=== PATIENT | male | born 1940 | race African-American/Black ===

== ENCOUNTER 2018-03-01 07:09 | Observation (INO) ==
[~2018-03-01 07:09] MED LIST: LACTATED RINGERS 1,000 ML IV SCH; ceFAZolin 1,000 MG VIAL ONE
[2018-03-01 07:49] LABS: Basophils % 0.6 % (0.0-0.8); Eosinophils # 0.2 10*3/uL (0.0-0.87); Eosinophils % 3.2 % (0.00-10.9); Hematocrit 36.3 VOL% (42.0-52.0); Hemoglobin 11.6 GM/DL (14.0-18.0); Immature Granulocytes % 0.4 %; Immature Granulocytes Absolute 0.02 #; Lymphocytes # 1.8 10*3/uL (1.4-4.0); Lymphocytes % 37.1 % (21.2-54.2); Mean Corpuscular Hemoglobin 27 PG (27-34); Mean Corpuscular Volume 85.8 FL (87-102); Mean Platelet Volume 9.2 FL (9.6-12.0); Monocytes # 0.4 10*3/uL (0.11-0.8); Monocytes % 9.1 % (1.7-12.7); Neutrophils # 2.4 10*3/uL (1.4-7.4); Neutrophils % 49.6 % (38.7-73.9); Platelet Count 191 T/CUMM (130-400); Red Blood Count 4.23 MC/CUMM (3.8-5.5); Red Cell Distribution Width 15.3 % (9.3-17.3); White Blood Count 4.7 T/CUMM (4-12)
[2018-03-01] MEDS ORDERED: ceFAZolin 1,000 MG in SYRINGE 1 EACH IV ONE (08:00)
[2018-03-01 08:22] LABS: Albumin 3.6 G/DL (3.4-5.0); Bilirubin,Total 0.4 MG/DL (0.2-1.0); Calcium 9.1 MG/DL (8.5-10.1); Potassium 3.6 MMOL/L (3.5-5.1); Total Protein 7.8 G/DL (6.4-8.3)
[2018-03-01] MEDS ORDERED: METOPROLOL SUCCINATE XL 25 MG TABLET PO ONE (09:09)
[2018-03-01] MEDS ORDERED: TISSUE ADHESIVE 1 EACH APPLICATOR TOP ONE (09:45)
[2018-03-01] MEDS ORDERED: BUPIVACAINE MPF 0.25% /EPI 30 ML VIAL ONE (09:45)
[2018-03-01] MEDS ORDERED: LIDOCAINE 1%/EPI INJ 20 ML VIAL ONE (09:45)
[2018-03-01] MEDS ORDERED: ONDANSETRON 4 MG/2 ML VIAL IV PRN (11:14)
[2018-03-01] MEDS ORDERED: MORPHINE 4 MG/1 ML VIAL IV PRN (11:14)
[2018-03-01] MEDS ORDERED: PROPOFOL 200 MG/20 ML VIAL IV ONE (11:29)
[2018-03-01] MEDS ORDERED: SEVOFLURANE 1 UNIT/15 MINUTE INH ONE (11:29)
[2018-03-01] MEDS ORDERED: ePHEDrine 50 MG/ML AMP ONE (11:29)
[2018-03-01] MEDS ORDERED: fentaNYL 100 MCG/2 ML VIAL ONE (11:29)
[2018-03-01] MEDS ORDERED: GLYCOPYRROLATE 0.4 MG/2 ML VIAL ONE (11:30)
[2018-03-01] MEDS ORDERED: PHENYLEPHRINE 1 MG/10 ML SYRINGE IV ONE (11:30)
[2018-03-01] MEDS ORDERED: ROCURONIUM 100 MG/10 ML VIAL IV ONE (11:30)
[2018-03-01] MEDS ORDERED: ACETAMINOPHEN 1,000 MG/100 ML VIAL IV ONE (11:30)
[2018-03-01] MEDS ORDERED: NEOSTIGMINE 10 MG/10 ML VIAL ONE (11:30)
[2018-03-01] MEDS ORDERED: FUROSEMIDE 20 MG TABLET PO SCH (16:00)
[2018-03-01 20:22] LABS: Troponin I Only < 0.015 NG/ML (0.00-0.045)
[2018-03-01 20:26] LABS: Troponin I Only < 0.015 NG/ML (0.00-0.045)
[2018-03-01 20:28] LABS: Free T4 (Free Thyroxine) 0.86 NG/DL (0.76-1.46); Thyroid Stimulating Hormone 3.29 uIU/ml (0.358-3.74)
[2018-03-01] MEDS: OLANZapine 5 MG TABLET PO SCH (20:56)
[2018-03-01] MEDS ORDERED: amLODIPine 10 MG TABLET PO SCH (21:00)
[2018-03-01] MEDS ORDERED: METOPROLOL SUCCINATE XL 25 MG TABLET PO SCH (21:00)
[2018-03-01] MEDS ORDERED: LISINOPRIL 20 MG TABLET PO SCH (21:00)
[2018-03-01] MEDS ORDERED: amLODIPine 5 MG TABLET PO SCH (21:00)
[2018-03-01] MEDS ORDERED: TIMOLOL 0.5% OPH SOLN 5 ML BOTTLE BOTH EYES SCH (21:00)
[2018-03-01 21:39] LABS: Apearance,Urine CLEAR (Clear); Bilirubin,Urine Negative (Negative); Blood, Urine Negative (Negative); Glucose,Urine (UA) Negative (Negative); Ketones,Urine Negative (Negative); Nitrite,Urine Negative (Negative); Protein,Urine Negative; RBC,Urine <1 /HPF (0-4); Urine Color Yellow (Yellow); Urine Specific Gravity 1.012 (1.001-1.035); Urine Urobilinogen < 2.0 EU/DL (0.2-1.0); WBC,Urine <1 /HPF (0-6)
[2018-03-02 05:30] LABS: Basophils % 0.2 % (0.0-0.8); Eosinophils # 0.1 10*3/uL (0.0-0.87); Eosinophils % 1.6 % (0.00-10.9); Hematocrit 33.6 VOL% (42.0-52.0); Hemoglobin 10.8 GM/DL (14.0-18.0); Immature Granulocytes % 0.4 %; Immature Granulocytes Absolute 0.02 #; Lymphocytes # 1.2 10*3/uL (1.4-4.0); Lymphocytes % 23.1 % (21.2-54.2); Mean Corpuscular HGB Conc 32.1 GM/DL (32-36); Mean Corpuscular Hemoglobin 27 PG (27-34); Mean Corpuscular Volume 85.3 FL (87-102); Mean Platelet Volume 9.5 FL (9.6-12.0); Monocytes # 0.4 10*3/uL (0.11-0.8); Monocytes % 7.3 % (1.7-12.7); Neutrophils # 3.4 10*3/uL (1.4-7.4); Neutrophils % 67.4 % (38.7-73.9); Platelet Count 175 T/CUMM (130-400); Red Blood Count 3.94 MC/CUMM (3.8-5.5); Red Cell Distribution Width 15.3 % (9.3-17.3); White Blood Count 5.1 T/CUMM (4-12)
[2018-03-02 05:53] LABS: Troponin I Only < 0.015 NG/ML (0.00-0.045)
[2018-03-02 05:55] LABS: Bilirubin,Total 0.8 MG/DL (0.2-1.0); Calcium 8.9 MG/DL (8.5-10.1); Osmolality,Calculated 280.4 MOS/KG (273-304); Potassium 3.6 MMOL/L (3.5-5.1); Total Protein 7.1 G/DL (6.4-8.3)
[2018-03-02 07:02] LABS: Risk Ratio 5.03; VLDL CHOLESTEROL 22.4 MG/DL
[2018-03-02] MEDS ORDERED: NON-FORMULARY MEDICATION (Ergocalciferol (Vitamin D2) [Vitamin D2] 2,000 UNIT) PO SCH (09:00)
[2018-03-02] MEDS ORDERED: PRAVASTATIN 20 MG TABLET PO SCH (09:00)
[2018-03-02] MEDS ORDERED: ALLOPURINOL 100 MG TABLET PO SCH (09:00)
[2018-03-02] MEDS ORDERED: PANTOPRAZOLE 40 MG TABLET PO SCH (09:00)
[2018-03-02] MEDS: OLANZapine 5 MG TABLET PO SCH (09:06)
[2018-03-02 17:43] VITALS: BP 134/71
== END 2018-03-02 17:15 ==
LOC: N.OR 07:09 → N.3E 07:09 → N.SDSINP 07:20 → N.3E 13:59
PROVIDERS: ADMIT Surgery; ATTEND Surgery
PROC: LAPCHOL (2018-03-01 10:10)